=== PATIENT | male | born 1980 | race Caucasian/White ===

== ENCOUNTER 2019-10-09 11:46 | Outpatient (CLI) | payer BC, SELFPAY ==
--- NOTE | ~2019-10-09 | XR_ITS ---
EXAMINATION: XR abdomen/kub 1V INDICATION: History of kidney stones TECHNIQUE: Supine views of the abdomen were obtained on 2 radiographs. COMPARISON: 05/31/2017 FINDINGS: Calcifications of the right kidney lower pole measuring 3 mm and 2 mm are consistent with k idney stones. Two faint 3 mm calcifications are also seen in the lower pole of the left kidney. There is a faint 3 mm calcification of the left pelvis which has an appearance similar to the comparison e xamination, likely phlebolith. The bowel gas pattern is normal. There are no dilated loops of bowel. IMPRESSION: 1. Bilateral nephrolithiasis. Reviewed, dictated and finalized at location A. N SHELLER
== END 2019-10-09 11:47 | disposition home or self-care (01) ==
LOC: ANHIMG 11:50
PROVIDERS: PCP Internal Medicine; Visit Provider Urology
DX: N20.0 Calculus of kidney (principal)
CPT/HCPCS: 74018

== ENCOUNTER 2020-03-04 16:15 | Outpatient (CLI) | payer BC, SELFPAY ==
--- NOTE | ~2020-03-04 | XR_ITS ---
XR abdomen/kub 1V DATE: 03/04/2020 16:46 INDICATION: Right flank pain. History of kidney stones. TECHNIQUE: AP projection, 2 views COMPARISON: 10/09/2019 KUB FINDINGS: Very faint small calcifications are suggested overlying each kidney. Noncontrast CT examina tion would be more sensitive for detection of renal calculi. No apparent ureteral calcifications are identified. No visceromegaly is evident. The psoas shadows are intact. No evidence of bowel obstruction. Included skeletal structures are unremarkable. IMPRESSION: Suggestion of small bilateral renal calculi Reviewed, dictated and finalized at Location A. Reviewed, dictated and finalized at location A.
--- NOTE | ~2020-03-04 | CT_ITS ---
EXAMINATION: CT abdomen pelvis wo con DATE: 03/04/2020 16:48 INDICATION: Acute right flank pain TECHNIQUE: Computed tomography (CT) of the abdomen and pelvis was performed without intravenous contr ast. Automated exposure control and iterative reconstruction technique were employed. Exam dose: 356 .39 mGy-cm total exam DLP. COMPARISON: 03/04/2020 KUB 10/04/2016 CT abdomen pelvis FINDINGS: The lung bases are clear. Normal heart size. No pericardial or pleural effusion. The liver, gallbladder, bile ducts, spleen, pancreas, pancreatic duct and adrenal glands are unremark able. No renal space occupying mass lesion is evident on this limited noncontrast examination. There is an approximately 4.2 mm obstructing distal right ureteral calculus S1-2 level. There is prox imal mild right hydroureteronephrosis. There are 2 pinpoint lower pole nonobstructing right renal calculi. There is a pinpoint upper pole nonobstructing left renal calculus. There are several pinpoint nonobst ructing lower pole left renal calculi. Multiple prostate calcifications. The urinary bladder is unremarkable. Diverticulosis of the colon; no CT evidence of diverticulitis. Normal appendix. IMPRESSION: 4.2 mm distal right ureteral calculus with proximal mild right hydroureteronephrosis Bilateral nephrolithiasis Diverticulosis of the colon Reviewed, dictated and finalized at Location A. Reviewed, dictated and finalized at location A. IMPRESSION: 4.2 mm distal right ureteral calculus with proximal mild right hyd roureteronephrosis Bilateral nephrolithiasis Diverticulosis of the colon
== END 2020-03-04 16:16 | disposition home or self-care (01) ==
PROVIDERS: PCP Internal Medicine; Visit Provider Urology
DX: K57.30 Diverticulosis of large intestine without perforation or abscess without bleeding (principal); N20.2 Calculus of kidney with calculus of ureter
CPT/HCPCS: 74018; 74176

== ENCOUNTER 2020-04-20 14:25 | Outpatient (CLI) | payer BC, SELFPAY ==
--- NOTE | ~2020-04-20 | CT_ITS ---
EXAMINATION: CT abdomen pelvis wo con DATE: 04/20/2020 15:01 INDICATION: Right ureteral stone. TECHNIQUE: Computed tomography (CT) of the abdomen and pelvis was performed without intravenous contr ast. Automated exposure control and iterative reconstruction technique were employed. The dose-length product was 269.11 mGy-cm. COMPARISON: CT abdomen and pelvis 03/04/2020 FINDINGS: A calcified right lung nodule is consistent with old granulomatous disease. No pleural effu treasure. The heart size is normal. No pericardial effusion. The liver, gallbladder, spleen, pancreas, an d adrenal glands are normal. There are two 3 mm stones in right kidney. There are four 1-2 mm stones in left kidney. There is mild right hydroureter. There is a 4 mm stone at right ureterovesicular junc tion. There are no dilated loops of bowel. The appendix is normal. There are no pathologically enlarg ed lymph nodes. There is no free intraperitoneal fluid. There is mild lumbar spondylosis. IMPRESSION: 1. 4 mm stone at right ureterovesicular junction with mild right hydroureter. 2. Small bilateral nonobstructing kidney stones. Reviewed, dictated and finalized at location B.
--- NOTE | ~2020-04-20 | XR_ITS ---
EXAMINATION: XR abdomen/kub 1V DATE: 04/20/2020 14:53 INDICATION: Right ureteral stone. TECHNIQUE: A supine view of the abdomen on 2 radiographs was obtained. COMPARISON: CT abdomen and pelvis 04/20/2020 FINDINGS: There are no dilated loops of bowel. There is a 4 mm stone at right ureterovesicular juncti on. There are stones in the kidneys measuring up to 3 mm on the right. IMPRESSION: 1. 4 mm stone at right ureterovesicular junction. 2. Small bilateral kidney stones. Reviewed, dictated and finalized at location B.
== END 2020-04-20 14:26 | disposition home or self-care (01) ==
LOC: ANHIMG 14:29
PROVIDERS: PCP Internal Medicine; Visit Provider Urology
DX: N20.2 Calculus of kidney with calculus of ureter (principal)
CPT/HCPCS: 74018; 74176

== ENCOUNTER 2020-04-24 02:09 | Day surgery (SDC) | payer BC, SELFPAY ==
[2020-04-23 14:26] VITALS: BMI 26.6
[2020-04-24] VITALS (8 sets, daily range): BP systolic 107–154; BP diastolic 67–98; PULSE 65–85; RESP 15–21; TEMP 35.9–36.6; O2SAT 97–100
--- NOTE | ~2020-04-24 | XR_ITS ---
EXAMINATION: XR fluoroscopy no charge DATE: 04/24/2020 11:55 INDICATION: Right ureteral stone extraction TECHNIQUE: 3 fluoroscopic images of the abdomen and pelvis were obtained during procedure performed stefano Joshi. Radiologist was not present for the imaging or procedure. The amount of fluoroscopy anish e used during this procedure was 0.3 minutes. COMPARISON: CT dated 04/20/2020 FINDINGS: There is a subtle small renal stone which projects over the right base of the bladder slightly latera l to the coccyx. The density is not visualized on the post extraction image. No other stones identifi ed with tiny stone seen at the lower poles of both kidneys on the prior CT either out of the field of view or too small to be visualized by fluoroscopy. IMPRESSION: 1. Fluoroscopy utilized during extraction of a stone at the right ureterovesicular junction. See proc edure note for further detail. Reviewed, dictated and finalized at location A. IMPRESSION: 1. Fluoroscopy utilized during extraction of a stone at the right ureterovesicu lar junction. See procedure note for further detail.
--- NOTE | 2020-04-24 06:56 | PM.HPGS ---
History of Present Illness History of Present Illness Consent: Risks, benefits, and alternatives have been discussed and questions answered. Patient agrees to proceed with procedure. Chief complaint: right ureteral stones Narrative: Johan Hess is a 40 year old male who's a recurrent stone former, now with intractable pain from a 4mm right distal ureteral stone. Review of Systems Cardiovascular: Cardiovascular: Denies chest pain, Denies lightheadedness, Denies palpitations and Denies dyspnea Respiratory: Respiratory: Denies dyspnea Gastrointestinal: Gastrointestinal: Denies diarrhea, Denies nausea and Denies vomiting Genitourinary: Genitourinary: Denies hematuria and Denies dysuria Endocrine: Endocrine: Denies palpitations [facility] Social History Social History Smoking status: Never smoker Alcohol intake: current Drinks per week: 4 Alcohol use details: BEERS Living arrangements: with family Spiritual care concerns: No Meds Home Medications and Allergies Home Medications Medication Instructions Recorded Confirmed Type ibuprofen 600 mg PO Q6H PRN 04/23/20 04/23/20 History Allergies Allergy/AdvReac Type Severity Reaction Status Date / Time Penicillins Allergy Severe Unknown Verified 04/23/20 14:05 Exam Const: General: no acute distress Resp: Effort & Inspection: normal respiratory effort GI: Inspection: non-distended GI Palp: No abdominal tenderness and No Guarding due to palpation present (GI) Auscultation: normal bowel sounds Assessment and Plan Assessment and plan (1) Right ureteral stone: Code(s): N20.1 - Calculus of ureter Status: Acute Assessment and Plan: Cysto, right ureteroscopy with stone extraction.
--- NOTE | 2020-04-24 10:04 | P.PNAN_ITS ---
Anes - Initial Pre Proc Eval Procedure: Operation Date: 04/24/20 11:30 Proposed Procedures p Cystoscopy, Right Ureteroscopy, Right Stone Extraction - Johan Joshi MD Date/Time: 04/24/20 10:04 Surgeon: Johan Joshi MD Pre Op Diagnosis: right ureteral stones Patient Data Age: 40 Gender: M Height: 5 ft 9 in Weight: 81.65 kg Allergies Allergy/AdvReac Type Severity Reaction Status Date / Time Penicillins Allergy Severe Unknown Verified 04/23/20 14:05 Home Medications Medication Instructions Recorded Confirmed Type ibuprofen 600 mg PO Q6H PRN 04/23/20 04/23/20 History Patient hx anesthesia problems: none Family hx anesthesia problems: none [facility] Social History Social History Smoking status: Never smoker Alcohol intake: current Drinks per week: 4 Alcohol use details: BEERS Living arrangements: with family Spiritual care concerns: No Anes - Eval Final PreProcedure Day of Procedure 04/24/20 10:04 Patient weight: overweight Heart: regular rate and rhythm Lungs: clear to auscultation Airway: Mallampati scale class II Neurological: alert and oriented Last oral intake: >/= 8 hours ASA classification: II Emergent: no Anesthetic plan: proceed Anesthesia type and monitoring: general LMA and standard monitoring Informed Consent: The patient's anesthetic plan and its attendant risks and benefits were discussed with the patient/family/POA. Questions were solicited and answers provided to the satisfaction of the patient/family/POA.
[2020-04-24] MEDS: LACTATED RINGERS 1,000 ML 30 ML IV CONT (10:09)
[2020-04-24] MEDS: levoFLOXacin 500 MG/D5W 100 ML 500 MG/100 ML BAG 100 MG IVPB (11:15)
[2020-04-24] MEDS: LIDOCAINE HCL 2% GEL UROJET 10 ML PKG MUCOUS MEM (11:31)
[2020-04-24] MEDS: KETOROLAC 30 MG/ML VIAL (*BKC) IV PUSH (11:50)
--- NOTE | 2020-04-24 12:21 | PM.PROC ---
Procedure Note - Detailed Date of procedure: 04/24/20 Pre-op diagnosis: right ureteral stones Post-op diagnosis: same Procedure performed: Cystoscopy, right ureteroscopy with stone extraction Description of procedure: The patient was brought to the operative suite where he is prepped and draped in a routine sterile fashion while in the dorsal lithotomy position after the uneventful induction of a general LMA anesthetic. A 19F rigid cystoscope was placed in the bladder. There are no urethral strictures. His prostatic urethra measures, approximately, 1.5cm with[no median lobe enlargement. The bladder mucosa was endoscopically normal without hyperemia or neoplasm. There was a single, orthotopic ureteral orifice bilaterally. A 0.035 glidewire was advanced into the right renal pelvis under fluoroscopy. The distal ureter was dilated with an 8F/10F ureteral dilator. Ureteroscopy was undertaken with a short, tapered, semi-rigid ureteroscope and the stone was extracted with ease using a 1.9F Escape disposable stone basket. Due to the ease of this manipulation I opted not to place a ureteral stent. The patient's bladder was emptied and was taken to the recovery room having tolerated this procedure well. Anesthesia: GLMA Surgeon: Johan Joshi MD Estimated blood loss (mL): 0 Drains: No Packing: No Pathology: yes Complications: No immediate complications Condition: stable Disposition: PACU
== END 2020-04-24 13:31 | disposition home or self-care (01) ==
PROVIDERS: PCP Internal Medicine; Visit Provider Urology
PROC: (CPT 52352; principal; 2020-04-24 11:30)
DX: N20.1 Calculus of ureter (principal); E66.3 Overweight; Z68.29 Body mass index [BMI] 29.0-29.9, adult
CPT/HCPCS: 52352; 82365; 88300; A9270; C1769; J1100; J1885; J1956; J2250; J2405; J3010; J7120

== ENCOUNTER 2022-12-07 19:03 | Emergency (ER) | payer BC, SELFPAY ==
--- NOTE | 2022-12-07 19:15 | ED.URI ---
HPI - URI/Sore Throat General Chief Complaint: Upper Respiratory Infection Stated Complaint: Sore Throat Time Seen by Provider: 12/07/22 19:25 Source: patient and RN notes reviewed Mode of arrival: ambulatory Limitations: no limitations History of Present Illness HPI Narrative: 42-year-old male presents with concern for sore throat exposure to strep. He reports his daughter currently has strep, his in his other child were diagnosed with it last week. He reports his symptoms started on Monday. MD elicited complaint: sore throat Related Data Allergies Allergy/AdvReac Type Severity Reaction Status Date / Time Penicillins AdvReac Mild Hives Verified 12/07/22 19:05 Review of Systems Review of Systems: CONSTITUTIONAL: Denies malaise, chills, sweats, or fever. EYES: Denies visual changes, redness, or discharge. ENT: Denies rhinorrhea, congestion, sinus pain, otalgia. Reports sore throat. CARDIOVASCULAR: Denies chest pain, palpitations, or edema. RESPIRATORY: Denies cough. Denies dyspnea. GASTROINTESTINAL: Denies abdominal pain, nausea, vomiting, diarrhea SKIN: Denies rash or itching. MUSCULOSKELETAL: Denies myalgia. NEUROLOGIC: Denies headache. All systems reviewed & are unremarkable except as noted in HPI and below PMFSH Social History Social History Smoking status: Never smoker Alcohol intake: current Drinks per week: 4 Alcohol use details: BEERS Living arrangements: with family Spiritual care concerns: No Comments At time of signature, agree with nursing past medical, surgical, social and family history. There is no relevant family history pertinent to the presenting complaint Exam Narrative: GENERAL: Well-appearing, well-nourished, and in no acute distress. HEAD: Normocephalic EYES: PERRLA, conjunctivae clear ENT: Nares clear. Mucous membranes moist. TM pearly raman with dull light reflex bilaterally; no tragal tenderness. Oropharynx erythematous without lesions. Tonsils enlarged and without exudate, no drooling, no hoarseness, no trismus, uvula midline. NECK: Supple. No lymphadenopathy CHEST: Clear to auscultation, breath sounds equal. No wheezing, rhonchi, rales, or stridor. No respiratory distress, speaks in full sentences. HEART: Regular rate and rhythm. No murmur heard. SKIN: Warm, dry, no rash. NEURO: Alert and oriented x3. PSYCH: Normal mood and affect Course Course Emergency Course: Patient is aware of diagnosis, understands and agrees to treatment plan. Anticipatory guidance given. Patient agrees to follow-up as directed and is aware of reasons to seek care at the emergency department. Portions of this record may have been created with voice recognition software Level of Care: Express Care Visit Vital Signs Vital signs: Reviewed. MDM - URI/Sore Throat MDM Narrative Medical decision making narrative: Differential diagnosis considered: Reed virus, strep pharyngitis, allergic rhinitis, upper respiratory tract infection, sinusitis, rhinosinusitis, nasopharyngitis. viral pharyngitis, otitis media, otitis externa, pneumonia, bronchitis, viral cough syndrome, viral syndrome, and influenza. Exam findings show no acute concerns or changes; patient is non-toxic appearing and is in no distress. Patient is appropriate for outpatient treatment and follow-up. Lab Data Attestation: I reviewed the patient's lab results. Critical Care Time Critical Care Time Critical Care Time: No Discharge Plan Discharge Clinical Impression: Pharyngitis, Exposure to strep throat Patient Disposition: Home, Self-Care Condition: Stable Instructions: Antibiotic Form, Strep Throat (ED) Additional Instructions: -Take the medication as prescribed. Throw away the toothbrush after 24hours of antibiotic. -Eat and drink things that are easy to swallow, like tea or soup, or popsicles to suck on. -Oral rinses such as: Salt water gargles and/or may use to
[2022-12-07 19:22] VITALS: BP 160/82; PULSE 117; RESP 18; TEMP 36.9; O2SAT 100
== END 2022-12-07 19:40 | disposition home or self-care (01) ==
PROVIDERS: Emergency Provider Nurse Practitioner; PCP Internal Medicine
DX: J02.9 Acute pharyngitis, unspecified (principal); Z20.818 Contact with and (suspected) exposure to other bacterial communicable diseases; I10 Essential (primary) hypertension
CPT/HCPCS: 87081; 87147; 87880; 99213; G0463

== ENCOUNTER 2023-06-20 09:48 | Observation (INO) | payer BC, SELFPAY ==
--- NOTE | ~2023-06-20 | XR_ITS ---
XR finger 3rd RT min 2V 06/20/2023 10:33 Indication: Right third finger pain Procedure: 3 views right third finger Comparison: No prior studies for comparison. Findings: There is a large amount of soft tissue swelling of the third digit. No fracture, subluxatio n or dislocation. No foreign bodies. Impression: 1: No acute bone or joint abnormality. Prominent soft tissue swelling of the third digit. Reviewed, dictated and finalized at location L. Impression: 1: No acute bone or joint abnormality. Prominent soft tissue swelling of the th ird digit.
[2023-06-20 09:49] VITALS: BP 197/117; PULSE 117; RESP 19; TEMP 36.7; O2SAT 98
[2023-06-20 10:27] LABS: Basophils Absolute Auto 0.1 K/mm3 (0.0-0.1); Basophils Percent Auto 0.6 % (0.2-1.2); Eosinophils Absolute Auto 0.1 K/mm3 (0-0.3); Eosinophils Percent Auto 0.7 % (0-4.4); Hematocrit 41.9 % (42.0-52.0); Immature Granulocyte Absolute 0.07 K/mm3 (0.00-0.031); Immature Granulocyte Percent A 0.6 % (0-0.5); Lymphocytes Absolute Auto 0.95 K/mm3 (0.9-3.2); Lymphocytes Percent Auto 8.5 % (18.3-44.2); Mean Corpuscular HGB Conc 35.8 g/dl (32-36); Mean Corpuscular Hemoglobin 34.3 pg (26-34); Mean Corpuscular Volume 95.9 fl (80-100); Mean Platelet Volume 9.1 fl (7.4-10.4); Monocytes Absolute Auto 0.7 K/mm3 (0.1-0.6); Monocytes Percent Auto 6.4 % (2.6-8.5); Neutrophils Absolute Auto 9.3 K/mm3 (1.3-6.7); Neutrophils Percent Auto 83.2 % (45.5-73.1); Platelet Count Result 235 k/mm3 (150-375); Red Blood Count 4.37 M/mm3 (4.6-6.20); Red Cell Distribution Width 11.9 % (11.5-14.5); White Blood Count 11.2 K/mm3 (4.5-10.0)
[2023-06-20 10:39] LABS: Alanine Aminotransferase 41 U/L (6-50); Albumin Level 4.8 g/dL (3.5-5.1); Alkaline Phosphatase 168 U/L (38-126); Anion Gap 8 mmol/L (8-16); Aspartate Amino Transferase 31 U/L (17-59); Bilirubin,Total 1.9 mg/dL (0.2-1.3); Blood Urea Nitrogen 11 mg/dL (9-20); CRP 5.3 mg/dL (<1.0); Calcium 9.5 mg/dL (8.4-10.2); Carbon Dioxide 28 mmol/L (22-30); Chloride 100 mmol/L (98-107); Estimated CRCL calculation 71 ml/min; Estimated Glomerular Filt Rate > 60; Glucose 98 mg/dL (65-110); Potassium 3.8 mmol/L (3.4-5.0); Sodium 136 mmol/L (137-145)
[2023-06-20 11:00] LABS: Erythrocyte Sedimentation Rate 26 mm/hr (0-20)
--- NOTE | 2023-06-20 11:46 | ED.EXTPRO ---
HPI - Extremity Problem General Chief complaint: Extremity Problem,Nontraumatic Stated complaint: finger swelling Time Seen by Provider: 06/20/23 11:07 History of Present Illness HPI Narrative: Patient is a 43-year-old male presenting with finger swelling. Patient states that he struck his right middle finger on something in his garage approximately 5 days. States that over the last couple of days the finger has become progressively more swollen and red. States that it feels very tight. He pressed on it and some pus came out. His is concerned for cellulitis so he came in for evaluation. States that some of the redness is spread into his hand starting yesterday. States that he had a fever of 100.6 4-5 days ago but has not had one since. Denies nausea or vomiting. No further complaints. Related Data Allergies Allergy/AdvReac Type Severity Reaction Status Date / Time Penicillins AdvReac Mild Hives Verified 06/28/23 10:03 Review of Systems Review of Systems: All systems reviewed & are unremarkable except as noted in HPI and below PMFSH Social History Social History (Updated 06/28/23 @ 10:01 by Susan Farrar MA) Social History: Currently lives at home with his and 3 girls. Surrogate decision maker: Bianca Hess, . Full Code. Smoking status: Never smoker Alcohol intake: current Drinks per week: 4 Alcohol use details: BEERS Substance use: never Lack of Transportation: No Lack of Food: Never True Current Housing: I Have Housing Concerned About Future Housing: No Difficulty Paying Gas/Electric Bills: No Difficulty Paying for Meds: No Currently Unemployed: No Education: High School Diploma/GED Difficulty w/ Childcare or Family Care: No Living arrangements: with family Spiritual care concerns: No Exam Narrative: GENERAL: Nontoxic, in no acute distress, pleasant and cooperative HEAD: Normocephalic, atraumatic. EYES: PERRLA and EOMI. ENT: Grossly unremarkable NECK: Supple. CHEST: No respiratory distress. HEART: Regular rate and rhythm. Normal peripheral pulses. ABDOMEN: Nondistended EXTREMITIES: Extensor surface of the right middle finger is very edematous and erythematous with purulent drainage from multiple sites, there is some erythema spreading to the MCP joint and dorsum of the hand, there is no erythema or edema of the flexor surface, no tenderness along the flexor surface, range of motion is intact SKIN: Warm, dry, as above NEURO: No focal deficits. Alert and oriented x3. PSYCH: Normal mood and affect. Course Vital Signs Vital signs: Vital Signs Temperature 98.1 F 06/20/23 09:49 Pulse Rate 117 H 06/20/23 09:49 Respiratory Rate 19 06/20/23 09:49 Blood Pressure 197/117 H 06/20/23 09:49 Pulse Oximetry 98 06/20/23 09:49 Oxygen Delivery Room Air 06/20/23 09:49 Temperature 98.2 F 06/21/23 14:00 Pulse Rate 90 06/21/23 14:00 Respiratory Rate 20 06/21/23 14:00 Blood Pressure 156/116 H 06/21/23 14:00 Pulse Oximetry 100 06/21/23 14:00 Oxygen Delivery Room Air 06/21/23 09:20 MDM - Extremity (Nontraumatic) MDM Narrative Medical decision making narrative: Patient is a 43-year-old male presenting with a finger infection. Exam remarkable for the above. Blood work with leukocytosis and elevation in inflammatory markers. X-ray without acute osseous abnormalities. Diffuse soft tissue swelling. Patient has been covered with antibiotics. Hand surgery consulted and will drain the abscess at bedside. Patient requires admission for IV antibiotics and wound care/occupational therapy. He is agreeable with this plan. Spoke to hospitalist who is excepted him for admission. Differential Diagnosis Differential diagnosis: Likely cellulitis and other (Hand infection, abscess) Medical Records Attestation: I reviewed the patient's medical records. Lab Data Attestation: I reviewed the patient's lab results. 06/21/23 0
[2023-06-20] MEDS: HYDROmorphone HCL INJ (*CRX) 1 MG/ML SYR 0.5 MG IV PUSH (11:57)
[2023-06-20] MEDS: SODIUM CHLORIDE 0.9% IV 1,000 ML 999 ML IV CONT (11:57)
[2023-06-20] MEDS: ceFAZolin 1 GM/NS 50 ML 1 GM/50 ML BAG IVPB ×2 (12:08→21:30)
[2023-06-20] MEDS: oxyCODONE/ACETAMINOPHEN (*CRX) 5-325 MG TABLET 1 TABLET PO (13:23)
--- NOTE | 2023-06-20 15:22 | WPDCN ---
Assessment and Plan Assessment and plan (1) Injury of right middle finger: Qualifiers: Encounter type: initial encounter Qualified Code(s): S69.91XA - Unspecified injury of right wrist, hand and finger(s), initial encounter Code(s): S69.91XA - Unspecified injury of right wrist, hand and finger(s), initial encounter Status: Acute Assessment and Plan: 43 y/o right hand dominant male with right middle finger abscess and cellulitis. Reviewed impression with pt, discussed incision and drainage to address abscess. Reviewed procedure risks including bleeding, worsening infection, injury to tendon/nerve/vessel/joint, limited AROM, wound healing problems, recurrence or no change in symptoms. Pt voiced understanding and agreement. Discussed with ED provider, Plan 1) RIGHT MIDDLE finger abscess incision/drainage, follow cultures 2) agree with ED recommendation for admission for continued IV abx 3) OT in AM 4) betadine soaks q12 5) wound care q12 6) elevate extremity when possible HPI Data of Consult Date/Time: 06/20/23 15:22 Requesting Physician: Dr. Felix Primary Care Provider: Dk Ball, Consult Narrative Narrative: Johan Hess is a 43 year old RIGHT HAND dominant male who presents to the ED for evaluation of RIGHT MIDDLE finger swelling and redness x 5 days. Pt recalls hitting right hand on metal rack 06/15/23, with a small resulting scrape to the dorsal R MF PIPJ. Redness and swelling significantly worsened over the past two days. 06/19/23 pt notes clear oozing from several sites on the finger, decreased ROM due to swelling of the digit, and tenderness over dorsal PIPJ. Non-smoker, denies h/o DM. Denies fever/chills, pain at rest, pain with flexoin/extension of the digit, decreased sensation, weakness. Plastic surgery consult requested for evaluation for possible incision and drainage. Completed ancef, receiving vanc. Review of Systems Constitutional: Constitutional: Reports as per HPI Musculoskeletal: Musculoskeletal: Reports as per HPI [facility] Social History Social History Smoking status: Never smoker Alcohol intake: current Drinks per week: 4 Alcohol use details: BEERS Substance use: never Lack of Transportation: No Lack of Food: Never True Current Housing: I Have Housing Concerned About Future Housing: YES Difficulty Paying Gas/Electric Bills: No Difficulty Paying for Meds: No Currently Unemployed: No Education: Associate Degree Difficulty w/ Childcare or Family Care: No Living arrangements: with family Spiritual care concerns: No Meds Home Medications and Allergies Home Medications Medication Instructions Recorded Confirmed Type No Home Medications 06/20/23 06/20/23 History Allergies Allergy/AdvReac Type Severity Reaction Status Date / Time Penicillins AdvReac Mild Hives Verified 06/20/23 10:49 Vital Signs Vital Signs - 24 hr 06/20/23 09:49 Temperature 36.7 C Pulse Rate 117 H Respiratory Rate 19 Blood Pressure 197/117 H Pulse Oximetry 98 Oxygen Delivery Room Air Exam Const: General: cooperative, healthy appearing and comfortable Orientation/consciousness: patient oriented x3 HENMT: Head: normal to inspection Eyes: Sclera: sclerae normal Resp: Effort & Inspection: normal respiratory effort and able to speak in complete sentences Extrem: Other: Right hand : Gen: Circumferential edema middle finger distal to MPJ. Dorsal middle finger erythema extending from mid middle phalanx across MPJ to mid dorsal metacarpal, and to the ulnar and radial glabrous border of middle finger. Dorsal MF PIPJ with superficial healing abrasion. Superficial abrasions dorsal DIPJ with serous exudate. Fluctuant superficial 3 x 2 cm collection distal right middle proximal phalanx extending over PIPJ, most superficial at mid dorsal proximal phalanx slightly rad
[2023-06-20 15:47] VITALS: BP 194/115
--- NOTE | 2023-06-20 15:50 | PC.NURSE ---
saumya balderas at bedside for i&d
[2023-06-20 16:02] VITALS: BMI 28.8
--- NOTE | 2023-06-20 17:15 | PM.IMHP ---
H&P: HPI History of Present Illness Date/Time: 06/20/23 17:15 Chief Complaint: Wound, R Hand Narrative: 43-year-old male presents here with swelling to right 3rd finger with no past medical history. Patient reports scraping finger while working in his garage 5 days ago. Reports fever of 100.6F shortly after injury, has since resolved without medication. area has progressively become more erythematous and swollen over the last few days. Swelling, pain, and redness significantly worse today. Erythema spreading to hand and and purulent drainage expressed when patient palpated area at home. Limited ROM to finger due to swelling/pain. While in the emergency department plastics evaluated patient. I&D was performed with 4 mLs of purulent drainage expressed. Review of Systems Review of Systems: patient denies decreased sensation to affected finger, nausea, vomiting, diarrhea, recurrent fever, or chills. All systems reviewed & are unremarkable except as noted in HPI and below PMFSH Social History Social History (Updated 06/20/23 @ 21:21 by Adri Tamez APRN) Social History: Currently lives at home with his and 3 girls. Surrogate decision maker: Bianca Hess, . Full Code. Smoking status: Never smoker Alcohol intake: current Drinks per week: 4 Alcohol use details: BEERS Substance use: never Lack of Transportation: No Lack of Food: Never True Current Housing: I Have Housing Concerned About Future Housing: YES Difficulty Paying Gas/Electric Bills: No Difficulty Paying for Meds: No Currently Unemployed: No Education: Associate Degree Difficulty w/ Childcare or Family Care: No Living arrangements: with family Spiritual care concerns: No Meds Home Medications and Allergies Home Medications Medication Instructions Recorded Confirmed Type No Home Medications 06/20/23 06/20/23 History Allergies Allergy/AdvReac Type Severity Reaction Status Date / Time Penicillins AdvReac Mild Hives Verified 06/20/23 10:49 Vital Signs Vital Signs - 24 hr 06/20/23 09:49 06/20/23 15:47 06/20/23 16:35 Temperature 98.1 F Pulse Rate 117 H Respiratory Rate 19 Blood Pressure 197/117 H 194/115 H Pulse Oximetry 98 Oxygen Delivery Room Air Room Air Exam Narrative: Patient resting in hospital bed, no visitors at bedside. Const: General: comfortable and no acute distress Eyes: General: appearance normal, both eyes and all related structures Sclera: sclerae normal Pupils: Equal, round and reactive pupils present Resp: Effort & Inspection: normal respiratory effort Auscultation: clear to auscultation bilaterally Cardio: Rate: regular rate Rhythm: regular rhythm Other: S1-S2 present without murmur, rub, ectopy Skin: Wounds: wounds noted Other: circumferential erythema and swelling primarily to right 3rd finger extending to just beyond MCP joint. small vertical incision between MCP and PIP joint. erythema with mild swelling to 2nd finger at base. no active drainage. dressing in place. Neuro: Speech: normal speech Sensory Exam: normal sensation Other: A/Ox4. Psych: Mental Status: mental status grossly normal Affect: Anxious affect present Other: good insight and judgement. H&P: Results Labs Labs: Short CBC 06/20/23 Range/Units 10:17 WBC 11.2 H (4.5-10.0) K/mm3 Hgb 15.0 (14.0-18.0) g/dL Hct 41.9 L (42.0-52.0) % Plt Count 235 (150-375) k/mm3 BMP 06/20/23 10:17 Sodium 136 L Potassium 3.8 Chloride 100 Carbon Dioxide 28 BUN 11 Creatinine 1.20 Glucose 98 Calcium 9.5 Liver Function 06/20/23 Range/Units 10:17 Total Bilirubin 1.9 H (0.2-1.3) mg/dL AST 31 (17-59) U/L ALT 41 (6-50) U/L Alkaline Phosphatase 168 H (38-126) U/L Albumin 4.8 (3.5-5.1) g/dL Assessment and Plan Assessment and plan (1) Cellulitis and abscess of finger, unsp
[2023-06-20 17:32] VITALS: BP 179/104
[2023-06-20] MEDS: HYDROcodone/acetaminophen (*CRX) 5-325 MG TABLET 1 TAB PO ×2 (18:44→22:35)
[2023-06-20 19:08] VITALS: BP 182/110
[2023-06-20 22:00] VITALS: BP 154/96; PULSE 86; RESP 21; TEMP 37.1; O2SAT 100
[2023-06-20] MEDS: TETANUS,DIPHTHERIA,AC PERTUSSIS ADULT (0.5 ML) BOOSTRIX IM (23:30)
[2023-06-21] MEDS: ceFAZolin 1 GM/NS 50 ML 1 GM/50 ML BAG IVPB ×2 (05:11→13:50)
[2023-06-21 05:44] LABS: Basophils Absolute Auto 0.1 K/mm3 (0.0-0.1); Basophils Percent Auto 0.7 % (0.2-1.2); Eosinophils Absolute Auto 0.1 K/mm3 (0-0.3); Eosinophils Percent Auto 1.4 % (0-4.4); Hematocrit 38.1 % (42.0-52.0); Hemoglobin 13.6 g/dL (14.0-18.0); Immature Granulocyte Absolute 0.07 K/mm3 (0.00-0.031); Immature Granulocyte Percent A 0.7 % (0-0.5); Lymphocytes Absolute Auto 1.74 K/mm3 (0.9-3.2); Lymphocytes Percent Auto 17.5 % (18.3-44.2); Mean Corpuscular HGB Conc 35.7 g/dl (32-36); Mean Corpuscular Hemoglobin 34.4 pg (26-34); Mean Corpuscular Volume 96.5 fl (80-100); Mean Platelet Volume 9.3 fl (7.4-10.4); Monocytes Absolute Auto 0.8 K/mm3 (0.1-0.6); Monocytes Percent Auto 8.1 % (2.6-8.5); Neutrophils Absolute Auto 7.1 K/mm3 (1.3-6.7); Neutrophils Percent Auto 71.6 % (45.5-73.1); Platelet Count Result 232 k/mm3 (150-375); Red Blood Count 3.95 M/mm3 (4.6-6.20); Red Cell Distribution Width 11.9 % (11.5-14.5); White Blood Count 9.9 K/mm3 (4.5-10.0)
[2023-06-21] MEDS: HYDROcodone/acetaminophen (*CRX) 5-325 MG TABLET 1 TAB PO ×2 (05:45→09:35)
[2023-06-21 05:59] LABS: Alanine Aminotransferase 28 U/L (6-50); Albumin Level 4.1 g/dL (3.5-5.1); Alkaline Phosphatase 132 U/L (38-126); Anion Gap 7 mmol/L (8-16); Aspartate Amino Transferase 23 U/L (17-59); Bilirubin,Total 1.6 mg/dL (0.2-1.3); Blood Urea Nitrogen 11 mg/dL (9-20); Calcium 9.2 mg/dL (8.4-10.2); Carbon Dioxide 25 mmol/L (22-30); Chloride 104 mmol/L (98-107); Estimated CRCL calculation 84 ml/min; Estimated Glomerular Filt Rate > 60; Glucose 102 mg/dL (65-110); Sodium 136 mmol/L (137-145)
[2023-06-21 06:14] VITALS: BP 182/94; PULSE 88; RESP 21; TEMP 37.2; O2SAT 100
[2023-06-21 08:00] VITALS: O2SAT 100
[2023-06-21] MEDS: ENOXAPARIN 40 MG/0.4 ML SYRINGE SUB-Q (08:32)
[2023-06-21 09:20] VITALS: O2SAT 100
[2023-06-21 11:20] VITALS: BP 155/112
--- NOTE | 2023-06-21 12:09 | WPDPN ---
Progress Note: A&P Assessment and Plan (1) Cellulitis and abscess of finger, unspecified: Code(s): L03.019 - Cellulitis of unspecified finger; L02.519 - Cutaneous abscess of unspecified hand Status: Acute Plan 43yo male with R MF abscess and cellulitis improving after I&D and iv abx reviewed KT Ibarra notes and agree discussed impression and Dx and feeling pt could be discharged on po abx per ID recs and continue BID soaks and wound care at home with plan to follow up with my or KT Ibarra next week Plan: 1) recommend transition to PO abx and discharge 2) elevation 3) wound care 4) warm soaks/compresss bid 5) f/u 1 week Subjective Date/time seen: 06/21/23 12:09 Interval history: Pt. seen and examined at bedside. patient notes feeling significantly better s/p R MF I&D by Alaina Ibarra PA-C yesterday and with abx compliant with betadine soaks and elevation notes improved motion and pain controlled Exam Narrative: Gen: right dorsal hand consistent with improving edema and resolving cellulitis and indruation. R MF dorsal incision with discoloration and desquamation. no active bleeding ROM: fds/fdp/edc intact though limtied from edema Vascular: Warm and well perfused Sensation: Intact to light touch Objective Data Vital Signs Vital Signs: Vital Signs - 24 hr 06/20/23 15:47 06/20/23 16:35 06/20/23 17:32 Temperature Pulse Rate Respiratory Rate Blood Pressure 194/115 H 179/104 H Pulse Oximetry Oxygen Delivery Room Air 06/20/23 19:08 06/20/23 20:00 06/20/23 22:00 Temperature 37.1 C Pulse Rate 86 Respiratory Rate 21 H Blood Pressure 182/110 H 154/96 H Pulse Oximetry 100 Oxygen Delivery Room Air 06/21/23 06:14 06/21/23 08:00 06/21/23 09:20 Temperature 37.2 C Pulse Rate 88 Respiratory Rate 21 H Blood Pressure 182/94 H Pulse Oximetry 100 100 100 Oxygen Delivery Room Air Room Air 06/21/23 11:20 Temperature Pulse Rate Respiratory Rate Blood Pressure 155/112 H Pulse Oximetry Oxygen Delivery Intake/Output Intake/Output: Intake & Output 06/18/23 06/19/23 06/20/23 06/21/23 23:59 23:59 23:59 23:59 Intake Total 1840 1472 Balance 1840 1472 Meds/Results Medications: Active Medications Generic Name Dose Route Start Last Admin Trade Name Freq PRN Reason Stop Dose Admin Acetaminophen 650 mg 06/20/23 17:37 Acetaminophen 325 Mg Tablet PO Q4H PRN Mild Pain (1-3) or Fever Hydrocodone Bitart/Acetaminophen 1 tab 06/20/23 17:37 06/21/23 09:35 Hydrocodone/Acetaminophen (*Crx) 5-325 Mg Tablet PO 1 tab Q4H PRN Administration Moderate Pain (4-6) Enoxaparin Sodium 40 mg 06/21/23 09:00 06/21/23 08:32 Enoxaparin 40 Mg/0.4 Ml Syringe SUB-Q 40 mg DAILY MARYLOU Administration Cefazolin Sodium 1 gm in 50 mls @ 100 mls/hr 06/20/23 22:00 06/21/23 05:44 Ancef 1 Gm/Ns 50 Ml IVPB Infused Q8H MARYLOU Infusion Vancomycin HCl 1,500 mg in 500 mls @ 250 mls/hr 06/21/23 18:00 Vancomycin 1,500 Mg/D5w 500 Ml IVPB Q12H MARYLOU Morphine Sulfate 2 mg 06/20/23 17:37 Morphine Sulfate (*Crx) 2 Mg/Ml Inj IV PUSH Q4H PRN Pain Rated 7-10 Naloxone HCl 0.1 mg 06/20/23 17:37 Naloxone Hcl 0.4 Mg/Ml Vial IV PUSH Q2M PRN Opiate Reversal Ondansetron HCl 4 mg 06/20/23 17:37 Ondansetron Inj 4 Mg/2 Ml Vial IV PUSH Q6H PRN Nausea And Vomiting Povidone Iodine 10 ml 06/21/23 09:00 Povidone-Iodine 10% Solution 118 Ml Bottle TOPICAL Q12H [facility] Radiology Results: ITS Impressions Finger X-Ray 06/20/23 10:36 Impression: 1: No acute bone or joint abnormality. Prominent soft tissue swelling of the third digit. Labs Labs: Laboratory Results - last 24 hr 06/21/23 05:22 WBC 9.9 RBC 3.95 L Hgb 13.6 L Hct 38.1 L MCV 96.5 MCH 34.4 H MCHC 35.7 RDW 11.9 Plt Count 232 MPV 9.3 Immature Gran % (Auto) 0.7 H Neut % (Auto) 71.6 Lymp
[2023-06-21] MEDS: POVIDONE-IODINE 10% SOLUTION 118 ML BOTTLE 10 ML TOPICAL (13:52)
[2023-06-21 14:00] VITALS: BP 156/116; PULSE 90; RESP 20; TEMP 36.8; O2SAT 100
--- NOTE | 2023-06-21 15:03 | PM.DS ---
DS: Admitting Diagnosis Discharge Date 06/21/23 Admitting Diagnosis right middle finger abscess DS: Discharge Diagnosis Discharge Diagnosis (1) Cellulitis and abscess of finger, unspecified: Code(s): L03.019 - Cellulitis of unspecified finger; L02.519 - Cutaneous abscess of unspecified hand Status: Acute (2) Elevated blood pressure, situational: Code(s): R03.0 - Elevated blood-pressure reading, without diagnosis of hypertension Status: Acute DS: Summary Hospital Course Hospital Course: This is a 43-year-old male with an insignificant past medical history that presents to the ED on 06/20/2023 due to swelling, pain and drainage from his right 3rd finger. He had scraped it while working in his garage 5 days prior. He had erythema spreading from his finger down into his hand as well as limited range of motion to the finger. Plastic surgery was consulted and they performed an I and D with 4 mL of purulence drainage expressed. Wound cultures and blood cultures drawn. Patient started on IV antibiotics. Patient was evaluated by plastics the next day and they advised is patient be transition to p.o. antibiotics, continued b.i.d. soaks and wound care at home with a follow-up in their office in 1 week. Patient feeling much better after I and D performed. Patient's white count within normal limits. Patient be discharged home on Keflex to follow up in Plastic surgery office in 1 week. Time Spent with Patient Time attestation: Total time spent providing and/or coordinating discharge services: Exam Narrative: GENERAL: Comfortable, no acute distress HENMT: moist mucous membranes EYES: EOM intact b/l NECK: no lymphadenopathy RESPIRATORY: clear to auscultation CARDIO: RRR GI: soft, nontender, bowel sounds present SKIN: no rashes EXTREMITIES: Right middle finger wrapped in bandages, dry, erythema receding DS: Data Data Completed and Pending Labs on day of discharge: Labs from last 24 hours 06/21/23 05:22 WBC 9.9 RBC 3.95 L Hgb 13.6 L Hct 38.1 L MCV 96.5 MCH 34.4 H MCHC 35.7 RDW 11.9 Plt Count 232 MPV 9.3 Immature Gran % (Auto) 0.7 H Neut % (Auto) 71.6 Lymph % (Auto) 17.5 L [place]arnett % (Auto) 8.1 Eos % (Auto) 1.4 Baso % (Auto) 0.7 Lymph # (Auto) 1.74 [place] # (Auto) 0.8 H Eos # (Auto) 0.1 Baso # (Auto) 0.1 Abs Immat Gran (auto) 0.07 H Absolute Neuts (auto) 7.1 H Absolute Nucleated RBC 0.0 Nucleated RBC % 0.0 Sodium 136 L Potassium 4.0 Chloride 104 Carbon Dioxide 25 Anion Gap 7 L BUN 11 Creatinine 1.00 Estim Creat Clear Calc 84 Estimated GFR > 60 Glucose 102 Calcium 9.2 Total Bilirubin 1.6 H AST 23 ALT 28 Alkaline Phosphatase 132 H Total Protein 8.0 Albumin 4.1 Preliminary micro results at discharge 06/20/23 10:17 Blood Culture - Preliminary Blood 06/20/23 10:17 Blood Culture - Preliminary Blood 06/20/23 14:55 Wound Culture - Preliminary Finger Right Middle 06/20/23 14:55 Wound Culture - Preliminary Abscess Discharge Plan Discharge Attending physician on discharge: Benjamín Guadalupe Consulting providers: Alaina Ibarra Discharging Clinician: Lisandra Calhoun Patient Disposition: Home, Self-Care Activity: as tolerated Diet: regular Discharge Instructions: Take antibiotics as prescribed. Start antibiotics tomorrow. Continue twice a day hand soaks and wound care dressings at home. Follow-up with Alaina Ibarra in 1 week. Discharge disposition: Take medications as prescribed Monitor blood pressures Avoid social areas, you wear a mask when in social settings Encouraged to continue with yearly vaccinations Return to the emergency department if he developed sudden shortness of breath, chest pain, nausea, vomiting, upset stomach or intractable diarrhea Return to the emergency department if you develop fever greater than 100.4 Follow-up with the primary care physician within 1-2 weeks
[2023-06-21] MEDS: ACETAMINOPHEN 325 MG TABLET 650 MG PO (15:13)
--- NOTE | 2023-06-27 10:01 | PC.NURSE ---
Blood cx are negative. Wound cx growing Group A Strept C. KT Calhoun aware.
== END 2023-06-21 16:20 | disposition home or self-care (01) ==
LOC: ANHED 11:18 → ANH2MED 16:23
PROVIDERS: Student in an Organized Health Care Education/Training Program; Admitting Provider Chiropractor; Emergency Provider Emergency Medicine; PCP Internal Medicine; Visit Provider Internal Medicine
DX: L03.019 Cellulitis of unspecified finger (principal); L02.511 Cutaneous abscess of right hand; B95.0 Streptococcus, group A, as the cause of diseases classified elsewhere; Z23 Encounter for immunization; S69.91XA Unspecified injury of right wrist, hand and finger(s), initial encounter; W22.8XXA Striking against or struck by other objects, initial encounter; R03.0 Elevated blood-pressure reading, without diagnosis of hypertension; F10.90 Alcohol use, unspecified, uncomplicated
CPT/HCPCS: 26010; 36415; 73140; 80053; 85025; 85652; 86140; 87040; 87070; 87147; 87205; 90471; 90715; 96365; 96366; 96368; 96372; 96375; 97165; 99253; 99285; A9270; G0378; J0690; J1170; J1650; J3370; J7030